=== PATIENT | female | born 1990 | race African-American/Black ===

== ENCOUNTER 2020-08-09 21:44 | Emergency (ER) | payer BC ==
[~2020-08-09] VITALS: Ht 162.6 cm; Wt 56.7 kg
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
--- NOTE | 2020-08-09 22:29 | NUR ---
CALLED RADIOLOGY FOR XRAY.
[2020-08-09] MEDS ORDERED: IBUPROFEN 600 MG TABLET ONE (22:47)
[2020-08-09] MEDS: IBUPROFEN 600 MG TABLET PO ONE (22:50)
--- NOTE | 2020-08-09 22:50 | NUR ---
PATIENT TAKEN TO XRAY OF STERNUM AND CLAVICLE
[2020-08-09] MEDS ORDERED: IBUP-1953 PO (22:52)
--- NOTE | 2020-08-09 23:48 | NUR ---
Patient discharged to home in stable condition. Written and verbal after care instructions given. Patient verbalizes understanding of instruction.
[2020-08-09 23:52] VITALS: BP 114/79
== END 2020-08-09 23:53 | disposition home or self-care (01) ==
LOC: ER 21:48
DX: S20.219A Contusion of unspecified front wall of thorax, initial encounter (principal); S40.012A Contusion of left shoulder, initial encounter; V49.49XA Driver injured in collision with other motor vehicles in traffic accident, initial encounter; Y93.89 Activity, other specified; Y92.488 Other paved roadways as the place of occurrence of the external cause; Y99.8 Other external cause status
CPT/HCPCS: 71045-TC; 71120-TC; 73000-TC; 84703-TC

== ENCOUNTER 2022-06-03 18:13 | Emergency (ER) | payer BC, MEDICAID ==
[~2022-06-03] VITALS: Ht 162.6 cm; Wt 54.4 kg
[~2022-06-03 18:13] MED LIST: IBUP-1953 PO
[2022-06-03 20:45] VITALS: BP 120/80
[2022-06-03] MEDS ORDERED: OXYM15MI4 NS (21:07)
[2022-06-03] MEDS ORDERED: BENZ200C53 PO (21:07)
[2022-06-03] MEDS ORDERED: ACET-73 PO (21:07)
[2022-06-03] MEDS ORDERED: GUAIFENESIN/D-METHORPHAN HB 5 ML UDC ONE (21:12)
[2022-06-03] MEDS ORDERED: ACETAMINOPHEN ES 500 MG TABLET ONE (21:12)
[2022-06-03] MEDS ORDERED: ACETAMINOPHEN 325 MG TABLET PO ONE (21:30)
[2022-06-03] MEDS ORDERED: GUAIFENESIN/D-METHORPHAN HB 5 ML UDC PO ONE (21:30)
== END 2022-06-03 22:18 | disposition home or self-care (01) ==
LOC: ER 18:15
DX: B34.9 Viral infection, unspecified (principal); R05.9 Cough, unspecified; R09.81 Nasal congestion; Z79.899 Other long term (current) drug therapy

== ENCOUNTER 2024-03-29 03:22 | Emergency (ER) | payer MEDICAID ==
[~2024-03-29] VITALS: Ht 162.6 cm; Wt 58.1 kg
[~2024-03-29 03:22] MED LIST changes: +ACET-73 PO; +BENZ200C53 PO; +OXYM15MI4 NS
[2024-03-29] MEDS ORDERED: KETO10TA2 PO (03:55)
[2024-03-29] MEDS ORDERED: HYDROCODONE/APAP 5/325MG TABLET ONE (03:55)
[2024-03-29] MEDS ORDERED: HYDR-3980 PO (03:55)
[2024-03-29] MEDS ORDERED: ACYC-108 PO (03:55)
[2024-03-29] MEDS ORDERED: SULF1TAB48 PO (03:55)
[2024-03-29] MEDS: HYDROCODONE/APAP 5/325MG TABLET PO ONE (04:00)
[2024-03-29 04:45] VITALS: BP 139/89; TEMP 97.8; O2SAT 99
== END 2024-03-29 04:46 | disposition home or self-care (01) ==
LOC: ER 03:27
DX: B00.0 Eczema herpeticum (principal); M79.642 Pain in left hand; M79.641 Pain in right hand; Z60.2 Problems related to living alone